=== PATIENT | female | born 1985 | race Caucasian/White ===

== ENCOUNTER 2019-06-22 02:01 | Emergency (ER) | payer SELFPAY ==
[2019-06-22 02:02] VITALS: BP 117/62; PULSE 92; RESP 16; TEMP 36.4; O2SAT 97; BMI 33.1
[2019-06-22 02:05] VITALS: RESP 16
--- NOTE | 2019-06-22 02:52 | ED.VIS.GEN ---
History of Present Illness Chief Complaint: Lower Extremity Injury Narrative: Patient is a 34-year-old female who presents with bilateral leg pain. This is been going on for about a day. She complains of pain radiating from her lower back or hips all the way down to her feet. She denies any numbness, tingling, weakness. No fall trauma injury. She denies abdominal pain. No history of back surgeries. No fevers. She denies urinary retention or fecal incontinence Past Medical History - Allergies and Home Meds Allergies/Adverse Reactions: Allergies acetaminophen [From Darvocet-N] Allergy (Verified 06/22/19 02:05) Hives guaifenesin [From Robitussin] Allergy (Verified 06/22/19 02:05) Hives propoxyphene [From Darvocet-N] Allergy (Verified 06/22/19 02:05) Hives Primary Care Physician: [facility],Out of [Primary Care Provider] - Past Medical History: None Smoking Status: Current every day smoker Review of Systems All systems negative except as indicated General: Denies: Fever Cardiovascular: Denies: Chest pain Respiratory: Denies: Dyspnea Gastrointestinal: Denies: Vomiting, Diarrhea Musculoskeletal: Reports: Back pain, Extremity Pain Skin: Denies: Rash Neurological: Denies: Headache Physical Exam Vital Signs/Narrative: Vital Signs Temp Pulse Resp BP Pulse Ox 06/22/19 02:05 16 06/22/19 02:02 97.6 F L 92 16 117/62 97 Inital Vital Signs reviewed: Yes General: Well nourished, Well developed Head: Normocephalic Eyes: EOMI ENT: Moist mucous membranes Neck: Supple Cardiovascular: Regular rate Respiratory: No distress Abdomen: Soft, Nontender, Nondistended Back: Nontender. Negative for: CVA tenderness, Spinal tenderness Extremities: Nontender, No edema, - - Easily palpable and symmetric dorsalis pedis pulses. Negative for: Tenderness, Calf Tenderness Skin: Normal color Neurological: Alert, Normal Strength, Normal Sensation, - - 5 out of 5 dorsiflexion, plantarflexion, extensor hallucis longus Diagnostic/Tx/Re-eval - Medical Decision Making Patient's presentation is most consistent with a lumbar radiculopathy. She was given first doses of prednisone and naproxen here as well as prescriptions for the same. She was advised on supportive care and discharged home. ED Disposition - Plan for ED Patient: Disposition: Home or Assisted Living Diagnosis: Lumbar radiculopathy Instructions: BACK PAIN w/ SCIATICA Prescriptions: Naproxen [Naprosyn] 500 mg PO BID #20 tab Prescription Printed predniSONE tablet 60 mg PO DAILY #12 tab Prescription Printed Referrals: [facility],Out of [Primary Care Provider] -
[2019-06-22] MEDS: Naproxen 500 MG Tablet PO (03:12)
[2019-06-22] MEDS: predniSONE 20 MG Tablet 60 MG PO (03:12)
[2019-06-22 03:13] VITALS: PULSE 88; RESP 16; O2SAT 98
== END 2019-06-22 03:14 | disposition home or self-care (01) ==
LOC: ED 03:04
PROVIDERS: Emergency Provider Emergency Medicine
DX: M54.16 Radiculopathy, lumbar region (principal); F17.200 Nicotine dependence, unspecified, uncomplicated
CPT/HCPCS: 99283